=== PATIENT | male | born 1990 | race Caucasian/White ===

== ENCOUNTER 2016-12-19 20:06 | Emergency (ER) | payer SELFPAY ==
--- NOTE | 2016-12-19 20:10 | EDM.PDOC ---
ED HPI GENERAL MEDICAL PROBLEM - General Stated Complaint: ASTHMA Time Seen by Provider: 12/19/16 20:45 Source of Information: Reports: Patient History Limitations: Reports: No Limitations - History of Present Illness INITIAL COMMENTS - FREE TEXT/NARRATIVE: HISTORY AND PHYSICAL: History of present illness: [25-year-old transgender male with a history of asthma now presents emergency department because of being out of albuterol inhaler. Patient just came from [place] and states weather triggered an asthma attack and she is out of her inhaler. She is not currently on steroids or antibiotics. She has no fevers chills sweats or shaking chills. No productive cough. Patient is refusing a chest x-ray and states she just wants a new prescription for her inhaler. No pleuritic or exertional chest pain and no other complaints] Review of systems: As per history of present illness and below otherwise all systems reviewed and negative. Past medical history: As per history of present illness and as reviewed below otherwise noncontributory. Surgical history: As per history of present illness and as reviewed below otherwise noncontributory. Social history: No reported history of drug or alcohol abuse. Family history: As per history of present illness and as reviewed below otherwise noncontributory. Physical exam: HEENT: Atraumatic, normocephalic, pupils reactive, negative for conjunctival pallor or scleral icterus, mucous membranes moist, throat clear, neck supple, nontender, trachea midline. Lungs: Clear to auscultation, breath sounds equal bilaterally, chest nontender. Heart: S1S2, regular, negative for clicks, rubs, or JVD. Abdomen: Soft, nondistended, nontender. Negative for masses or hepatosplenomegaly. Negative for costovertebral tenderness. Pelvis: Stable nontender. Genitourinary: Deferred. Rectal: Deferred. Extremities: Atraumatic, negative for cords or calf pain. Neurovascular unremarkable. No tenderness or asymmetry Neuro: Awake, alert, oriented. Cranial nerves grossly unremarkable. Motor y unremarkable throughout. Exam nonfocal. Diagnostics: [] Therapeutics: [Nebulized bronchodilator therapy and by mouth prednisone administered Impression: [] Plan: [Patient signs and symptoms asthma exacerbation weather trigger. Well-appearing afebrile normal respiratory rate trace wheezing. Patient is refusing a chest x- ray and just requests an MDI prescription. She does have a spacer and prednisone will be prescribed. No further workup or treatment indicated at this time and she will Follow-up PCP one day. Patient agrees with outpatient follow- up and strict return precautions given] Definitive disposition and diagnosis as appropriate pending reevaluation and review of above. - Related Data Allergies Allergy/AdvReac Type Severity Reaction Status Date / Time No Known Allergies Allergy Verified 12/19/16 20:26 Home Meds: Home Meds Albuterol [IJD: Albuterol HFA] 1 puff .XX 12/19/16 [History] ED ROS GENERAL - Review of Systems Review Of Systems: See Below (History of present illness) ED EXAM, GENERAL - Physical Exam Exam: See Below (History of present illness) Course - Vital Signs Last Recorded V/S: Last Vital Signs Temp 36.5 C 12/19/16 20:29 Pulse 81 12/19/16 20:29 Resp 20 12/19/16 20:29 BP 116/67 12/19/16 20:29 Pulse Ox 97 12/19/16 20:29 - Orders/Labs/Meds Orders: Active Orders 24 hr Category Date Time Status RT Aerosol Therapy [RC] ASDIRECTED Care 12/19/16 21:04 Active predniSONE Med 12/19/16 21:04 Once 60 mg PO ONETIME ONE Meds: Medications Discontinued Medications Generic Name Dose Route Start Last Admin Trade Name Joseq PRN Reason Stop Dose Admin Albuterol/Ipratropium 3 ml 12/19/16 21:03 Duoneb 3.0-0.5 Mg/3 Ml NEB 12/19/16 21:04 ONETIME ONE Departure - Departure Time of Disposition: 21:13 Disposition: Home, Self-Care 01 Condition: Good Clinical Impression: Asthma exacerbation - Discharge Information Additional Instructions: You are suffering from an asthma exacerbation as you described likely triggered by weather change. Use your inhaler 2 puffs every 4 hours with a spacer as needed. Finish prednisone once a day for 5 days as prescribed. Follow-up with your tomorrow and return immediately for new severe or worsening symptoms - My Orders Last 24 Hours: My Active Orders 12/19/16 21:04 RT Aerosol Therapy [RC] ASDIRECTED predniSONE 60 mg PO ONETIME ONE - Assessment/Plan Last 24 Hours: My Active Orders 12/19/16 21:04 RT Aerosol Therapy [RC] ASDIRECTED predniSONE 60 mg PO ONETIME ONE
[2016-12-19] MEDS ORDERED: Albuterol/Ipratropium 3.0-0.5 MG/3 ML Neb Soln NEB ONE (21:03)
[2016-12-19] MEDS ORDERED: predniSONE 20 MG Tab PO ONE (21:04)
== END 2016-12-19 21:33 | disposition home or self-care (01) ==
LOC: MW.ED 20:06
DX: J45.901 Unspecified asthma with (acute) exacerbation (principal); Z79.899 Other long term (current) drug therapy
CPT/HCPCS: 94640; 99282; A9270